=== PATIENT | female | born 1990 ===

== ENCOUNTER 2020-11-30 11:30 | Inpatient (IN) | payer MEDICAID, OTHER ==
[2020-11-30] MEDS ORDERED: BICITRA ORAL LIQD 30ML PO ONE (14:55)
[2020-11-30] MEDS ORDERED: FAMOTIDINE 20 MG/2 ML INJ IV ONE (14:55)
[2020-11-30] MEDS ORDERED: METOCLOPRAMIDE 10 MG/2 ML INJ IV ONE (14:55)
[2020-11-30] MEDS ORDERED: LACTATED RINGERS 1,000 ML IV SCH (15:00)
[2020-11-30] MEDS ORDERED: OXYTOCIN DRIP 30 UNITS/500 ML BAG IV SCH (15:00)
--- NOTE | 2020-11-30 15:09 | History and Physical Report ---
History of Present Illness Date of examination: 11/30/20 Chief complaint: repeat c/s History of present illness: 30 yo at 39w3d (ANGELA 12/05/20) c/b hx prior c/s x 2, hx low lying placenta presneting for repeat c/s. Denies labor complaint or PIH symptoms. +FM. Past History Past Medical History: no pertinent history Past Surgical History: section (x2) Family/Genetic History: none Social history: no significant social history - Obstetrical History Expected Date of Delivery: 12/05/20 Actual Gestation: 39 Week(s) 2 Day(s) : 3 Para: 2 Hx # Term Pregnancies: 2 Number of Living Children: 2 Review of Systems All systems: negative (expect HPI) - Physical Exam Abdomen: Positive: normal appearance Uterus: Positive: enlarged - Obstetrical FHR: category 1 Uterine Contraction Monitor Mode: External Uterine Contraction Pattern: Absent Results All other labs normal. Assessment and Plan - Patient Problems (1) H/O: Status: Acute Plan to address problem: To OR for repeat c/s --Consented in the chart --Questions solicited and answered
[2020-12-01] MEDS ORDERED: ceFAZolin/Water 2 GM/20 ML 2 GM/20 ML SYRINGE IV NR
[2020-12-01] MEDS ORDERED: LACTATED RINGERS 2,000 ML ONE (12:29)
[2020-12-01 13:16] LABS: Basophils % (Auto) 0.2 % (0.0-1.8); Eosinophils # (Auto) 0.1 K/mm3 (0.0-0.4); Eosinophils % (Auto) 0.7 % (0.0-4.3); Hematocrit 39.5 % (30.3-42.9); Hemoglobin 13.3 gm/dl (10.1-14.3); Lymphocytes # (Auto) 1.8 K/mm3 (1.2-5.4); Lymphocytes % (Auto) 21.4 % (13.4-35.0); Mean Corpuscular HGB Conc 34 % (30-34); Mean Corpuscular Volume 83 fl (79-97); Monocytes # (Auto) 0.6 K/mm3 (0.0-0.8); Monocytes % (Auto) 6.8 % (0.0-7.3); Platelet Count 278 K/mm3 (140-440); Red Blood Count 4.79 M/mm3 (3.65-5.03); Red Cell Distribution Width 14.4 % (13.2-15.2)
[2020-12-01] MEDS ORDERED: BUPIVACAINE/PF (0.5%) 5 MG/1 ML 30 ML VIAL INFILTRATI ONE ×2 (13:22→16:00)
[2020-12-01] MEDS ORDERED: ONDANSETRON 4 MG/2 ML INJ ONE ×2 (13:22→16:00)
[2020-12-01] MEDS ORDERED: dexAMETHasone 20 MG/5 ML VIAL ONE ×2 (13:22→16:00)
[2020-12-01] MEDS ORDERED: PHENYLEPHRINE 10 MG/1 ML INJ SDV ONE (13:22)
[2020-12-01] MEDS ORDERED: BICITRA ORAL LIQD 30ML PO NR (14:00)
[2020-12-01] MEDS ORDERED: METOCLOPRAMIDE 10 MG/2 ML INJ IV NR (14:00)
[2020-12-01] MEDS ORDERED: FAMOTIDINE 20 MG/2 ML INJ IV NR (14:00)
[2020-12-01] MEDS ORDERED: ceFAZolin/STERILE WATER 2 GM/20 ML SYRINGE IV ONE (14:15)
--- NOTE | 2020-12-01 14:19 | Anesthesia Consultation ---
Anesthesia Consult and Med Hx Date of service: 12/01/20 - Airway Anesthetic Teeth Evaluation: Good ROM Head & Neck: Adequate Mental/Hyoid Distance: Adequate Mallampati Class: Class II Intubation Access Assessment: Probably Good - Pulmonary Exam CTA: Yes - Cardiac Exam Cardiac Exam: RRR - Pre-Operative Health Status ASA Pre-Surgery Classification: ASA3 Proposed Anesthetic Plan: Spinal - Pulmonary Hx Asthma: No - Cardiovascular System Hx Hypertension: No - Central Nervous System Hx Seizures: No Hx Psychiatric Problems: No - Endocrine Hx Renal Disease: No Hx Hypothyroidism: No Hx Hyperthyroidism: No - Hematic Hx Anemia: No Hx Sickle Cell Disease: No - Other Systems Hx Alcohol Use: No Hx Obesity: Yes
--- NOTE | 2020-12-01 14:20 | Progress Note ---
Spinal Anesthesia Block - Spinal Anesthesia Block Start Time: 14:05 Stop Time: 14:15 Performed by:: PELON GREENE Procedure: Sitting, sterile chlorahexadine 0.5% prep/drape, 1% lidocaine skin local, 25G spinal needle + introducer at L3-4, + CSF, - Heme, [1.8 ml 0.5% bupivacaine + 10 mcg dexmedetomidine] injected, drape removed, patient positioned supine with left uterine displacement, and spinal level verified to be adequate prior to surgery. Jas SRNA
--- NOTE | 2020-12-01 14:20 | Anesthesia Day of Surgery ---
Anesthesia Day of Surgery - Day of Surgery Patient Examined: Yes Patient H&P Reviewed: Yes Patient is NPO: Yes
--- NOTE | 2020-12-01 15:38 | Procedure Note ---
OB Delivery Note - Delivery Date of Delivery: 12/01/20 Surgeon: SEEMA COLLIER JR Estimated blood loss: other (701cc QBL) - Section Preop diagnosis: repeat Postop diagnosis: same section procedure: section, repeat low transverse Disposition: PACU Complications: none Narrative: Indication: 30 yo at 39w3d (ANGELA 12/05/20) c/b hx prior c/s x 2, hx low lying placenta presneting for repeat c/s. Denies labor complaint or PIH symptoms. +FM. Findings: Normal uterus, tubes and ovaries. Clear fluid with terminal meconium. No nuchal cord. Delivery of female infant at 1458 Weight 4130g Height 20 in APGARS 9/9 EBL 701 cc QBL IVF 1400cc UOP 200cc Procedure: Patient was taken to the operating room prepped and draped in the usual sterile fashion. Pfannenstiel skin incision was made and carried down to the underlying fascia. Fascia was incised and the incision was distended bilaterally. Rectus fascia was dissected off the rectus muscle superiorly and inferiorly. Peritoneum was identified and entered. Peritoneal incision extended superiorly and inferiorly. The bladder was visualized. The bladder blade was placed. Uterine hysterotomy incision was made and extended bilaterally. The baby was delivered in the typical vertex fashion with the assistance of the vacuum. Baby was bulb suction at delivery. The cord was cut and clamped and handed off to the team. The placenta was delivered spontaneously. The uterus was exteriorized and cleared of all clots and debris. Uterine incision was closed with a 0 Vicryl in a running locked fashion. Good hemostasis was noted after 2 [id number] sutures applied to the uterine incision. Surgecil powder was applied to the uterine incisional base to provide hemostasis. The urine was noted to be clear. Uterus, tubes, and ovaries were returned to the abdominal cavity. Bilateral gutters were cleared and the abdomen and pelvis were irrigated. Good hemostasis noted. The rectus muscle was reapproximated with 2-0 Vicryl. Attention was directed towards the rectus fascia which was reapproximated with 0 PDS in a running fashion. The subcutaneous tissue was irrigated and reapproximated with 2-0 Vicryl in a running fashion. Skin was closed with a 4-0 Vicryl in a subcuticular fashion. The procedure was completed and the patient tolerated the procedure well. All instruments and lap counts were correct x2. - Infant A at 1 minute: 9 at 5 minutes: 9 Gender: Female
[2020-12-01] MEDS ORDERED: ACETAMINOPHEN 325 MG TAB PO PRN (16:00)
[2020-12-01] MEDS ORDERED: OXYTOCIN DRIP 30 UNITS/500 ML BAG IV SCH (16:00)
[2020-12-01] MEDS ORDERED: ONDANSETRON 4 MG/2 ML INJ IV PRN (16:00)
[2020-12-01] MEDS ORDERED: PROMETHAZINE 25 MG RECT SUPP PR PRN (16:00)
[2020-12-01] MEDS ORDERED: WITCH HAZEL/ GLYCERIN PAD TP PRN (16:00)
[2020-12-01] MEDS ORDERED: NALOXONE 0.4 MG/1 ML INJ IV PRN (16:00)
[2020-12-01] MEDS ORDERED: SENNOSIDES 8.6 MG TAB PO PRN (16:00)
[2020-12-01] MEDS ORDERED: KETOROLAC 30 MG/1 ML INJ ONE (16:00)
[2020-12-01] MEDS ORDERED: PHENYLEPHRINE/NS 1,000 MCG/10 ML SYRINGE (OR USE) IV ONE (16:00)
[2020-12-01] MEDS ORDERED: LANOLIN/ZINC/DIMETHICONE (LANSINOH) 7 GM TP PRN (16:00)
[2020-12-01] MEDS ORDERED: miSOPROStol 200 MCG TAB ONE (16:40)
[2020-12-01] MEDS ORDERED: miSOPROStol 200 MCG TAB PR ONE (16:43)
[2020-12-01] MEDS ORDERED: SODIUM CHLORIDE 0.9% 100 ML ONE (16:43)
[2020-12-01] MEDS ORDERED: LACTATED RINGERS 1,000 ML ONE (18:02)
[2020-12-01] MEDS ORDERED: LACTATED RINGERS 1,000 ML IV SCH (18:15)
[2020-12-01] MEDS: KETOROLAC 30 MG/1 ML INJ IV SCH (19:39)
[2020-12-01] MEDS ORDERED: HYDROCORTISONE 25 MG RECTAL SUPP PR PRN (22:00)
[2020-12-01] MEDS ORDERED: MAGNESIUM HYDROXIDE (MOM) ORAL LIQD UDC PO PRN (22:00)
[2020-12-02] MEDS: MORPHINE 4 MG/1 ML INJ IV PRN ×2 (00:05→07:42)
[2020-12-02] MEDS: KETOROLAC 30 MG/1 ML INJ IV SCH ×3 (01:10→11:59)
[2020-12-02 07:21] LABS: Hematocrit 36.8 % (30.3-42.9); Hemoglobin 12.2 gm/dl (10.1-14.3)
--- NOTE | 2020-12-02 09:03 | Progress Note ---
Assessment and Plan - Patient Problems (1) H/O: Current Visit: No Status: Acute Plan to address problem: Postop day 1 status post still with significant postoperative pain. Continue to monitor closely and consider imaging if persistent. Vital signs and lab work thus far within normal limits. Bleeding well controlled. --Continue to advance care --Anticipate discharge in 48 to 72 hours. Subjective - Subjective Date of service: 12/02/20 Principal diagnosis: POD1 repeat c/s Interval history: Patient reports that she is not gotten up to move given significant postoperative pain. Odonnell has been removed and SCDs are off. Baby is doing well in the room. Patient reports: pain poorly controlled [place]: doing well Objective - Vital Signs Latest vital signs: Vital Signs Temp Pulse Resp BP BP Pulse Ox Pulse Ox 12/02/20 07:57 97.9 F 55 L 16 93/51 96 12/02/20 03:50 98.6 F 56 L 18 112/52 100 12/02/20 00:40 98.0 F 58 L 20 95/48 94 12/01/20 20:15 99 12/01/20 19:39 16 12/01/20 18:00 97.5 F L 59 L 18 131/78 99 12/01/20 17:00 99 12/01/20 16:45 65 22 107/64 100 12/01/20 16:35 65 15 103/53 98 12/01/20 16:20 97.6 F 66 23 106/57 98 12/01/20 16:05 66 22 102/63 98 12/01/20 16:00 66 20 102/61 97 12/01/20 15:55 69 24 93/52 97 12/01/20 15:49 70 22 95/48 95 12/01/20 15:44 97.7 F 74 20 79/34 95 12/01/20 13:52 82 100 12/01/20 13:47 81 99 12/01/20 13:42 78 99 12/01/20 13:37 66 99 12/01/20 13:32 65 100 12/01/20 13:27 71 99 12/01/20 13:22 73 99 12/01/20 13:17 73 99 12/01/20 13:07 99.3 F 72 16 99 Intake and Output 12/01/20 12/02/20 12/02/20 23:59 07:59 15:59 Intake Total 570 Output Total 900 1200 Balance -330 -1200 Intake: IV 450 Oral 120 Output: Urine 900 1200 Indwelling Catheter 600 1200 Ureteral 200 Other: Total, Intake Amount 120 Total, Output Amount 600 300 - Exam Abdomen: Present: normal appearance, soft, normal bowel sounds Uterus: Present: firm Incision: Present: dressed - Labs Labs: Abnormal lab results 11/30/20 Range/Units 12:57 Seg Neutrophils % 70.9 H (40.0-70.0) %
--- NOTE | 2020-12-02 16:29 | Post Anesthesia Evaluation ---
- Post Anesthesia Evaluation Patient Participated: Yes Airway Patent: Yes Stable Respiratory Function: Yes Nausea/Vomiting: No Temp > 96.8F: Yes Pain Manageable: Yes Adequeate Hydration: Yes Anesthesia Complications: No Block Receding Appropriately: Yes
[2020-12-02] MEDS: IBUPROFEN 800 MG TAB PO PRN (18:15)
[2020-12-02] MEDS: SIMETHICONE 80 MG CHEW TAB PO PRN (19:41)
[2020-12-02] MEDS: oxyCODONE /ACETAMINOPHEN 5-325MG TAB PO PRN (22:37)
[2020-12-03] MEDS: IBUPROFEN 800 MG TAB PO PRN ×2 (04:00→14:45)
[2020-12-03] MEDS: oxyCODONE /ACETAMINOPHEN 5-325MG TAB PO PRN (08:42)
[2020-12-03] MEDS: SIMETHICONE 80 MG CHEW TAB PO PRN (08:42)
--- NOTE | 2020-12-03 10:18 | Progress Note ---
Assessment and Plan A: /postop day 2 S/P repeat LTCS. Anemia. P: Supplement with iron. Encouraged patient to ambulate. Remove dressing today. Anticipate discharge home tomorrow if patient continues to do well. Subjective - Subjective Date of service: 12/03/20 Principal diagnosis: POD2 repeat c/s Patient reports: appetite normal, voiding normally, pain well controlled, flatus, ambulating normally, no dizzy ambulation, no nauseated : doing well Objective - Vital Signs Latest vital signs: Vital Signs Temp Pulse Resp BP Pulse Ox Pulse Ox 12/03/20 08:00 98.0 F 65 20 103/59 96 12/03/20 04:00 18 12/03/20 00:14 98.0 F 71 18 96/52 94 12/02/20 23:37 18 12/02/20 22:37 18 12/02/20 20:30 99 12/02/20 16:27 98.1 F 65 20 94/54 96 12/02/20 12:10 98.3 F 59 L 20 96/50 97 Intake and Output 12/02/20 12/03/20 12/03/20 23:59 07:59 15:59 Intake Total 240 200 200 Output Total 700 Balance -460 200 200 Intake: Oral 240 200 200 Output: Urine 700 Void 700 Other: Total, Intake Amount 240 200 200 Total, Output Amount 700 # Voids Void 1 1 1 - Exam Cardiovascular: Present: Regular rate Lungs: Present: Clear to auscultation Abdomen: Present: normal appearance, soft, normal bowel sounds. Absent: distention, tenderness, guarding, rigidity Uterus: Present: normal, firm, fundal height below umbilicus (FH at 1 FB below umbilicus). Absent: bogginess, tenderness Extremities: Absent: tenderness, edema Incision: Present: dry, dressed
[2020-12-04] MEDS: oxyCODONE /ACETAMINOPHEN 5-325MG TAB PO PRN (02:23)
--- NOTE | 2020-12-04 07:32 | Progress Note ---
Assessment and Plan A: /postop day 3 S/P repeat section. Anemia. P: Discharge patient home today. Discussed with patient /postop d ischarge instructions and warning signs. Care of incision and activity restrictions discussed with patient. Advised patient to continue to take her vitamin and iron supplement at home. Advised patient to avoid intercourse, lifting, housework, driving, stair climbing, and tub baths (patient may take showers). Advised patient to follow up at [facility] in 1 week. Patient voiced understanding of all instructions. Subjective - Subjective Date of service: 12/04/20 Principal diagnosis: POD3 repeat c/s Interval history: Patient desires discharge home today. Patient reports: appetite normal, voiding normally, pain well controlled, flatus, ambulating normally, no dizzy ambulation, no nauseated : doing well Objective - Vital Signs Latest vital signs: Vital Signs Temp Pulse Resp BP Pulse Ox Pulse Ox 12/04/20 02:23 18 12/04/20 00:46 97.9 F 83 18 119/72 96 12/03/20 21:30 98 12/03/20 19:50 98 12/03/20 16:29 98.5 F 69 20 103/61 98 12/03/20 08:30 96 12/03/20 08:00 98.0 F 65 20 103/59 96 Intake and Output 12/03/20 12/03/20 12/04/20 15:59 23:59 07:59 Intake Total 440 240 120 Balance 440 240 120 Intake: Oral 440 240 Intake, Free Water 120 Other: Total, Intake Amount 240 240 # Voids Void 1 1 1 - Exam Cardiovascular: Present: Regular rate Lungs: Present: Clear to auscultation Abdomen: Present: normal appearance, soft, normal bowel sounds. Absent: distention, tenderness, guarding, rigidity Uterus: Present: normal, firm, fundal height below umbilicus. Absent: bogginess, tenderness Extremities: Present: normal. Absent: tenderness, edema Incision: Present: normal, dry, intact
--- NOTE | 2020-12-04 07:37 | Discharge Summary ---
Providers - Providers Date of Admission: 12/01/20 11:59 Date of discharge: 12/04/20 Attending physician: SEEMA COLLIER JR, MD Primary care physician: TANNA HOANG MD Hospitalization Reason for admission: section Delivery: Procedure: repeat low transverse Incision: normal, dry, intact Other procedures: none complications: none Discharge diagnosis: IUP at term delivered [place] baby: female Pertinent studies: Labs Hospital course: Uncomplicated hospital course Condition at discharge: Good Disposition: 01 HOME / SELF CARE / HOMELESS - Discharge Diagnoses (1) Term delivered Status: Acute (2) Anemia Status: Acute Plan - Discharge Medications Prescriptions: Ibuprofen [Motrin 800 MG tab] 800 mg PO Q6H PRN #30 tablet PRN Reason: Pain, Mild (1-3) oxyCODONE /ACETAMINOPHEN [Percocet 5/325 mg] 1 tab PO Q6H PRN #30 tablet PRN Reason: Pain, Moderate (4-6) - Provider Discharge Summary Activity: routine, no sex for 6 weeks, no heavy lifting 4 weeks, no strenuous exercise Diet: routine Instructions: routine Additional instructions: Continue taking your vitamin and iron supplement at home. Follow up at [facility] in 1 week. Call your doctor immediately for: * Fever > 100.5 * Heavy vaginal bleeding ( >1 pad per hour) * Severe persistent headache * Shortness of breath * Reddened, hot, painful area to leg or breast * Drainage or odor from incision. * Keep incision clean and dry at all times and follow doctor's instructions regarding bathing/showering - Follow up plan Follow up: PRIMARY CARE, [Referring] - 7 Days
[2020-12-04] MEDS: IBUPROFEN 800 MG TAB PO PRN (08:31)
[2020-12-04 13:04] VITALS: BP 103/69
== END 2020-12-04 13:20 | disposition home or self-care (01) | DRG 788 ==
LOC: APU 12-01 11:59 → OB 12-01 17:12
PROVIDERS: ADMIT Obstetrics & Gynecology; ATTEND Obstetrics & Gynecology
PROC: 10D00Z1 Extraction of Products of Conception, Low, Open Approach (ICD-10-PCS; principal; 2020-12-01)
DX: O77.0 Labor and delivery complicated by meconium in amniotic fluid (principal); O34.211 Maternal care for low transverse scar from previous cesarean delivery; Z3A.39 39 weeks gestation of pregnancy; Z37.0 Single live birth; O90.81 Anemia of the puerperium; Z20.822 Contact with and (suspected) exposure to COVID-19
CPT/HCPCS: 36415; 85014; 85018; 85025; 86850; 86900; 86901; G0378; J0690; J1100; J1885; J2270; J2370; J2405; J2590; J3490; U0003

== ENCOUNTER 2020-12-28 13:18 | Emergency (ER) | payer SELFPAY ==
[2020-12-28] MEDS ORDERED: SODIUM CHLORIDE 0.9% 1000 ML 1,000 ML IV ONE (14:00)
--- NOTE | 2020-12-28 14:11 | Emergency Department Report ---
ED General Adult HPI - General Chief complaint: Pain General Stated complaint: HAD C SECTION/PAIN IN INCISION/FEVER Time Seen by Provider: 12/28/20 13:52 Source: patient Mode of arrival: Ambulatory Limitations: Language Barrier - History of Present Illness Initial comments: Patient presents with a 2-day history of lower abdominal pain associated with so me erythema of the incision site. Patient had a done in mid-to-late November. As far she was aware, there were no complications. Over the last couple of days, she is developed increasing pain. She has not noticed any drainage. She has noticed some swelling. The skin appears to be erythematous. There is warmth associated with this. She states that the pain is worse than it had been. There is no history of recent travel or trauma. She has not taken anything for pain or fever. She has not checked her temperature, she states that she just felt hot and sweaty. There is no vomiting. There is no dysuria or frequency. She has had no increased lochia or other complaint. Pain is a constant aching and burning sensation. - Related Data Previous Rx's Medication Instructions Recorded Last Taken Type Ibuprofen [Motrin 800 MG tab] 800 mg PO Q6H PRN #30 tablet 12/01/20 Unknown Rx oxyCODONE /ACETAMINOPHEN [Percocet 1 tab PO Q6H PRN #30 tablet 12/01/20 Unknown Rx 5/325 mg] Allergies Allergy/AdvReac Type Severity Reaction Status Date / Time No Known Allergies Allergy Verified 12/01/20 12:27 ED Review of Systems ROS: Stated complaint: HAD C SECTION/PAIN IN INCISION/FEVER Other details as noted in HPI Comment: All other systems reviewed and negative Constitutional: fever ( Subjective) Eyes: denies: vision change ENT: denies: throat pain Respiratory: denies: cough Cardiovascular: denies: chest pain Endocrine: denies: unexplained weight loss Gastrointestinal: as per HPI Genitourinary: denies: dysuria Musculoskeletal: denies: back pain Skin: as per HPI Neurological: denies: headache Hematological/Lymphatic: denies: easy bruising ED Past Medical Hx - Past Medical History Previous Medical History?: No Hx Hypertension: No Hx Diabetes: No Hx Deep Vein Thrombosis: No Hx Renal Disease: No Hx Sickle Cell Disease: No Hx Seizures: No Hx Asthma: No Hx HIV: No - Surgical History Past Surgical History?: No - Family History Family history: no significant - Social History Smoking Status: Former Smoker - Medications Home Medications: Home Medications Medication Instructions Recorded Confirmed Last Taken Type Ibuprofen [Motrin 800 MG tab] 800 mg PO Q6H PRN #30 tablet 12/01/20 Unknown Rx oxyCODONE /ACETAMINOPHEN [Percocet 1 tab PO Q6H PRN #30 tablet 12/01/20 Unknown Rx 5/325 mg] ED Physical Exam - General Limitations: No Limitations, Language Barrier, Other ( pulse ox noted and normal) General appearance: alert, in no apparent distress, other ( nontoxic in appearance) - Head Head exam: Present: atraumatic, normocephalic, normal inspection - Eye Eye exam: Present: normal appearance, EOMI. Absent: scleral icterus - ENT ENT exam: Present: normal exam, mucous membranes moist - Neck Neck exam: Present: normal inspection. Absent: meningismus - Respiratory Respiratory exam: Present: normal lung sounds bilaterally. Absent: respiratory distress - Cardiovascular Cardiovascular Exam: Present: regular rate, normal rhythm - GI/Abdominal GI/Abdominal exam: Present: soft, tenderness ( suprapubic and incisional left greater than right). Absent: guarding, rebound - Extremities Exam Extremities exam: Present: normal capillary refill. Absent: pedal edema - Back Exam Back exam: Absent: CVA tenderness (R), CVA tenderness (L) - Neurological Exam Neurological exam: Present: alert, oriented X3, normal gait. Absent: motor sensory deficit - Psychiatric Psychiatric exam: Present: normal affect, normal mood - Skin Skin exam: Present: warm, dry ED Course Vital Signs 12/28/20 13:33 Temperature 99.5 F Pulse Rate 90 Respiratory 17 Rate Blood Pressure 114/68 O2 Sat by Pulse 98 Oximetry - Reevaluation(s) Reevaluation #1: 12/28/20 14:14 IV and labs were ordered. CT was ordered. Old records reviewed. Care was signed out to Dr. Nath. ED Medical Decision Making - Medical Decision Making Patient presents with incisional pain with erythema. She states that the pain has been increasing. IV, labs, and CT were ordered to evaluate for any type of postoperative infection. Critical Care Time: No Critical care attestation.: If time is entered above; I have spent that time in minutes in the direct care of this critically ill patient, excluding procedure time. ED Disposition Clinical Impression: Postoperative abdominal pain Disposition: 30 STILL A PATIENT Is pt being admited?: No Condition: Stable
[2020-12-28 14:56] LABS: Basophils % (Auto) 0.2 % (0.0-1.8); Eosinophils # (Auto) 0.3 K/mm3 (0.0-0.4); Eosinophils % (Auto) 2.6 % (0.0-4.3); Hematocrit 39.2 % (30.3-42.9); Hemoglobin 12.7 gm/dl (10.1-14.3); Lymphocytes # (Auto) 1.7 K/mm3 (1.2-5.4); Lymphocytes % (Auto) 17.2 % (13.4-35.0); Mean Corpuscular HGB Conc 32 % (30-34); Mean Corpuscular Volume 83 fl (79-97); Monocytes # (Auto) 0.6 K/mm3 (0.0-0.8); Monocytes % (Auto) 5.7 % (0.0-7.3); Platelet Count 287 K/mm3 (140-440); Red Blood Count 4.74 M/mm3 (3.65-5.03)
[2020-12-28 15:11] LABS: Blood Urea Nitrogen 8 mg/dL (7-17); Calcium 8.8 mg/dL (8.4-10.2); Hemolysis Index 11
[2020-12-28 15:13] LABS: BUN/Creatinine Ratio 20
--- NOTE | 2020-12-28 16:32 | Cat Scan Report ---
CT abdomen pelvis w con INDICATION: Postoperative cellulitis 100 ML OMNI 300 . TECHNIQUE: All CT scans at this location are performed using CT dose reduction for ALARA by means of automated e xposure control. COMPARISON: None available. FINDINGS: The visualized lung bases are clear. There is hepatic steatosis. The gallbladder, pancreas, kidneys, adrenal glands, and spleen all appear normal. The uterus is enlarged suggestive of recent . There are no intra-abdominal fluid collections or areas of hemorrhage. Urinary bladder is moderately distended. There is mild constipation without acute bowel abnormality. Visualized osseous structures demonstrate no significant abnormality. IMPRESSION: 1. Findings likely secondary to recent . No focal fluid collections or free fluid identified in the abdomen or pelvis. Signer Name: Anand Oliva MD Signed: 12/28/2020 4:28 PM Workstation Name: [id number]
[2020-12-28 18:13] VITALS: BP 116/69
== END 2020-12-28 17:30 | disposition home or self-care (01) ==
LOC: ED 13:18
DX: G89.18 Other acute postprocedural pain (principal); R10.9 Unspecified abdominal pain
CPT/HCPCS: 36415; 74177; 80048; 85025; 87040; 96360; 99284; J7030; Q9967